=== PATIENT | male | born 1950 | race Caucasian/White ===

== ENCOUNTER 2016-09-05 12:22 | Emergency (ER) | payer MEDICARE ==
[~2016-09-05] VITALS: Ht 175.3 cm; Wt 79.8 kg
--- NOTE | 2016-09-05 12:42 | Emergency Room Report ---
History of Present Illness Time Seen by [id number] Presenting Problem in Triage Pt arrived:Walked Presenting Problem:ABD PAIN, UNABLE TO URINATE SINCE 4AM, SENT HERE FROM DR. 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 N Clinical Suspician of Infection? N Mental Status: 1 - Regular (Normal Baseline) Sepsis Risk:Possible Sepsis Risk Have you (or family members/close friends) recently traveled outside the [place]? N If Yes, where/when: Have you had exposure to infectious disease within the past month? TB? Other? Specify: Patient reports no UOP for the past eight hours, having diffuse back pain without neurological sx; reports hx renal calculi but no recent urinary sx, no hematuria, no unilateral pain. No fever or vomiting. Referred to ED by his PCP, Dr. Quintanilla. ALLERGIES Coded Allergies: Sulfa (Sulfonamide Antibiotics) (09/05/16) cefaclor (From CECLOR) (09/05/16) Home Medications Reported Medications No Known Home Medications History Medical History General Angina: No NE: No Hypertension? Yes Hyperlipidemia? No CHF? No COPD? Yes Asthma? Yes CVA? No Seizures? No Diabetes? No GB Disease: No MRSA? No TB? No Cancer? No Immunization Hx DT/Tetanus Unknown Surgical Hx Previous Surgery?Y MOLES FORM NECK NOSE WART RIGHT INDEX FINGER Social History Smoking Hx Smoker: Never Smoker Tobacco: No Alcohol Alcohol: No Review of Systems All Other Systems Reviewed and Negative Genitourinary see HPI. Physical Exam Vital Signs Vital Signs Date Time Temp Pulse Resp B/P Pulse O2 O2 Flow FiO2 Ox Delivery Rate 09/05 1311 85 14 141/75 94 09/05 1226 98.7 110 20 165/83 95 General Appearance normal appearance, WD/WN, mild distress Eye Exam - bilateral eye normal exam, bilateral eye PERRL Neck normal inspection, non-tender, supple Respiratory Status Yes: trachea midline, chest symmetrical, non tender chest. No: respiratory distress, tender on palpation, use of accessory muscles, pain on inspiration, pain on expiration, productive cough, non productive cough. Lung Sounds bilateral: normal breath sounds, lungs clear. Cardiovascular normal exam, regular rate/rhythm, no peripheral edema, no gallop, no JVD, no murmur, no rub, JVD Gastrointestinal normal bowel sounds, normal exam, soft, no organomegaly, no pulsatile mass, no guarding, no rebound, tenderness, mild tenderness and distension, suprapubic region. Neg CVAT. Back no CVA tenderness Extremities normal range of motion Strength 5 Upper Ext (L), 5 Upper Ext (R), 5 Lower Ext (L), 5 Lower Ext (R) Neurologic alert, normal exam, oriented x 3 Glascow Coma Scale Glascow Coma Scale Response Value EYE response: 4 Spontaneously 4 MOTOR response: 6 OBEYS 6 VERBAL response: 5 Oriented & Converses 5 Total 15 Skin intact, normal color, warm/dry Medical Decision Making LABS/Meds/Orders Pt receiving controlled substance in ED? No Results/Orders Laboratory Tests 09/05/16 1300: Sodium 137, Potassium 3.5, Chloride 102, Carbon Dioxide 25, BUN 14, Creatinine 0.9, Estimated Creat Clear 89, Estimated GFR (MDRD) 84, Glucose 232 H, Calcium 8.9, WBC 13.1 H, RBC 4.91, Hgb 13.7 L, Hct 41.9 L, MCV 85.4, RDW 14.3, Plt Count 193, Gran % 91.3 H, Gran # 12.0 H, Total Counted Pending, Lymphocytes % 5.8 L, Monocytes % 2.9, Neutrophils Pending, Lymphocytes (Manual) Pending, Lymphocytes # 0.8, Monocytes # 0.4, Platelet Estimate Pending, PUBS MCHC 32.7, MCH 27.9 09/05/16 1245: Urine Color YELLOW, Urine Appearance CLEAR, Urine pH 6.0, Ur Specific [place] 1.010, Urine Protein NEGATIVE, Urine Ketones NEGATIVE, Urine Blood 1+ H, Urine Nitrate NEGATIVE, Urine Bilirubin NEGATIVE, Urine Urobilinogen 0.2, Ur Leukocyte Esterase NEGATIVE, Urine RBC 10-20, Urine WBC OCC, Ur Squamous Epith Cells OCC, Urine Bacteria OCC, Urine Glucose 3+ H Orders Procedure Date/time Status DIFFERENTIAL-WBC 09/05 1300 Active URINARY CATHETER INSERT 09/05 123 Active URINALYSIS/COMPLETE 09/05 1234 Complete CBC WITH AUTO DIFF 09/05 123 Active BASIC METABOLIC PROFILE 09/05 123 Complete Progress ED Progress Notes Date 09/05/16 Time 1331 Comment 900 ml into Barrera bag; complete relief of discomfort, d/c home stable. Departure Departure Time of Disposition 1332 Disposition DC Home or Self Care(routine) Clinical Impression Primary Impression: Acute urinary retention Condition STABLE Referrals Frank Quintanilla MD Patient Instructions How to Care for Your Barrera Catheter -- Female Additional Instructions See Dr. Quintanilla in one day for recheck Barrera and potential referral to urology. Discharge Counseling Counseled pt/family regarding diagnosis, test results, home care, follow up needs Prescriptions Current Visit Scripts No Known Home Medications ED Critical Care Critical Care No at 1332
[2016-09-05 13:05] LABS: URINE BILIRUBIN - DIPSTICK NEGATIVE (NEG); URINE BLOOD 1+ (NEG)
--- OUTSIDE RECORDS SUMMARY | 2016-09-05 13:10 | External Medical Summary Rpt ---
Author Author [employer] Organization [employer] Address Unknown Phone Unavailable Purpose Continuity of Care Document - through 2016
--- OUTSIDE RECORDS SUMMARY | 2016-09-05 13:10 | External Medical Summary Rpt ---
Author Author BRAVO Address Unknown Phone [email or web address] Purpose Continuity of Care Document - through 2016
--- OUTSIDE RECORDS SUMMARY | 2016-09-05 13:10 | External Medical Summary Rpt ---
Demographics Preferred Language Azeri Marital Status Unknown Mandaen Affiliation Unknown Race Unknown Ethnic Group Unknown Author Author , BRAVO [place] Address Unknown Phone Immunization Unable to retrieve immunization data due to connection failure with Immunization Registry. Please try again later.
--- OUTSIDE RECORDS SUMMARY | 2016-09-05 13:10 | External Medical Summary Rpt ---
Author Author BRAVO Address Unknown Phone [email or web address] Purpose Continuity of Care Document - through 2016
--- OUTSIDE RECORDS SUMMARY | 2016-09-05 13:10 | External Medical Summary Rpt ---
Demographics Preferred Language Romanian Marital Status Unknown Tenriism Affiliation Unknown Race Unknown Ethnic Group Unknown Author Author , BRAVO [place] Address Unknown Phone Immunization Unable to retrieve immunization data due to connection failure with Immunization Registry. Please try again later.
[2016-09-05 13:15] LABS: HEMOGLOBIN 13.7 g/dL (14.1-18.0)
[2016-09-05 13:16] LABS: LYMPH # 0.8 K/mm3 (0.7-4.5); LYMPH % 5.8 % (10-50)
[2016-09-05 13:20] LABS: URINE SQUAMOUS CELLS OCC #/hpf (OCC)
[2016-09-05 13:37] LABS: NEUTROPHILS 89 % (42-76)
[2016-09-05 14:02] VITALS: BP 140/77
[2016-09-06] MEDS ORDERED: FLOMAX0.4 MG PO (23:56)
[2016-09-06] MEDS ORDERED: CIPRO 500MG TA500 MG PO (23:56)
[2016-09-14] MEDS ORDERED: GLUCOPHAGE500 MG PO (11:38)
[2016-09-15] MEDS ORDERED: OXYBUTYNIN5 MG PO (14:40)
== END 2016-09-05 14:04 | disposition home or self-care (01) ==
LOC: ER 12:22
PROVIDERS: Emergency Medicine
PROC: 0T9B70Z Drainage of Bladder with Drainage Device, Via Natural or Artificial Opening (ICD-10-PCS; principal; 2016-09-05)
DX: R33.9 Retention of urine, unspecified (principal); I10 Essential (primary) hypertension

== ENCOUNTER 2016-09-06 20:33 | Emergency (ER) | payer MEDICARE ==
[~2016-09-06] VITALS: Ht 175.3 cm; Wt 78.0 kg
[2016-09-06 22:46] LABS: URINE BILIRUBIN - DIPSTICK NEGATIVE (NEG); URINE BLOOD 3+ (NEG)
[2016-09-06] MEDS ORDERED: CIPRO 500MG TA500 MG PO (23:56)
[2016-09-06] MEDS ORDERED: FLOMAX0.4 MG PO (23:56)
--- NOTE | 2016-09-06 23:57 | Emergency Room Report ---
History of Present Illness Time Seen by [id number] Presenting Problem in Triage Pt arrived:Walked Presenting Problem:C/O UNABLE TO URINATE. WAS SEEN IN ER 09/05/16 FOR SAME PROBLEM AND HAD YEN CATH INSERTED. 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 N Clinical Suspician of Infection? N Mental Status: 1 - Regular (Normal Baseline) Sepsis Risk:Low Sepsis Risk Have you (or family members/close friends) recently traveled outside the [place]? N If Yes, where/when: Have you had exposure to infectious disease within the past month? N TB? Other? Specify: Comment The patient was seen in this emergency department yesterday for acute urinary retention. A Yen catheter placed. It was removed by his primary care physician today at 3 PM. He is not been able to urinate since except for a tiny amount. He complains of a distended bladder with back pain. No fever. Catheter has been placed in the emergency department and he feels much better. He has an appointment to see urologist Dr. Webb on Monday. ALLERGIES Coded Allergies: Sulfa (Sulfonamide Antibiotics) (09/05/16) cefaclor (From CECLOR) (09/05/16) History Medical History General CAD? No Angina: No VT: No Hypertension? Yes Hyperlipidemia? No CHF? No DVT? No PE? No COPD? Yes Asthma? Yes Anemia? No GERD? No Gastric ulcers? No GI Bleed? No Hernia? Yes Thyroid Problems? No Hypothyroidism? No CVA? No Seizures? No Diabetes? No Renal Insuffiency? No End Stage Renal Disease? No UTI? No Stones? Yes BPH? Yes GB Disease: No Nephritic Syndrome? No Asplenia? No Hepatitis? No Sickle Cell Disease? No Arthritis? No Migraines? No Cataracts? No Glaucoma? No MRSA? No HIV? No TB? No Anxiety? No Depression? No Cancer? No Immunization Hx DT/Tetanus Unknown Surgical Hx Previous Surgery?Y MOLES FORM NECK NOSE WART RIGHT INDEX FINGER Social History Smoking Hx Smoker: Never Smoker Tobacco: No Alcohol Alcohol: No Review of Systems All Other Systems Reviewed and Negative Constitutional denies fever Genitourinary see HPI. Musculoskeletal back pain Physical Exam Vital Signs Vital Signs Date Time Temp Pulse Resp B/P Pulse O2 O2 Flow FiO2 Ox Delivery Rate 09/077 98.4 85 20 142/78 99 09/07 0022 85 17 142/78 99 09/06 2238 105 20 139/73 96 09/06 2131 98.4 89 18 164/85 95 09/06 203 98.3 82 18 131/91 96 General Appearance normal appearance Respiratory Status No: respiratory distress. Cardiovascular regular rate/rhythm Gastrointestinal normal exam, non tender Male Genitalia normal genitalia, no hernia, uncircumcised Neurologic alert, oriented x 3 Medical Decision Making LABS/Meds/Orders Pt receiving controlled substance in ED? No Results/Orders Laboratory Tests 09/06/162234: Urine Color YELLOW, Urine Appearance CLEAR, Urine pH 7.5, Ur Specific [place] 1.010, Urine Protein NEGATIVE, Urine Ketones TRACE H, Urine Blood 3+ H, Urine Nitrate NEGATIVE, Urine Bilirubin NEGATIVE, Urine Urobilinogen 2.0, Ur Leukocyte Esterase NEGATIVE, Urine RBC NONE, Urine WBC 5-10, Ur Squamous Epith Cells NONE, Urine Bacteria TRACE, Urine Glucose 2+ H Current Medication Orders Sig/Soham Start time Last Medication Dose Route Stop Time Status Admin Levofloxacin 0 .STK-MED ONE 09/07 0012 DC .ROUTE Levofloxacin 500 MG ONCE ONE 09/065 DC 09/07 PO 09/06 2345 0013 Orders Procedure Date/time Status GEN NSG/PT REQ (NOT FOR MEDS!) 09/06 2356 Active CULTURE, URINE 09/06 2354 Active URINARY CATHETER INSERT 09/07 2235 Active URINALYSIS/COMPLETE 09/07 2235 Complete Departure Departure Disposition DC Home or Self Care(routine) Clinical Impression Primary Impression: Acute urinary retention Condition STABLE Referrals Dawood Gates MD (Family) Patient Instructions DI for Urinary Retention in Men, How to Care for Your Yen Catheter -- Male Additional Instructions Keep catheter in until you see Dr. Webb on Monday. Prescriptions Current Visit Scripts TAMSULOSIN HCL (Flomax) 0.4 MG PO QHS #10 CAP Ciprofloxacin HCl (Cipro 500MG TAB) 500 MG PO BID #20 TAB ED Critical Care Critical Care No at 0148
[2016-09-07 00:37] VITALS: BP 142/78
--- OUTSIDE RECORDS SUMMARY | 2016-09-09 18:39 | External Medical Summary Rpt ---
Author Author , BRAVO Campbell BRAVO Address Unknown Phone [email or web address] Purpose Continuity of Care Document - 09-05-2016 through 2016 Problems Code Diagnosis DOS Provider Status R33.8 OTHER RETENTION OF URINE Results Labs Lab Lab Date Result Refere Interp Status Commen Order Detail nces retati t Range on Urinalysis dipstick W Reflex Microscopic panel in Urine (09-06-2016 22:35) Bacteri TRACE O complet a 017 ed [Presen 22:35 ce] in Urine sedimen t by Light microsc opy Erythro NONE 0 complet cytes 017 ed [Presen 22:35 ce] in Urine sedimen t by Light microsc opy Epithel NONE OCC complet ial 017 ed cells.s 22:35 quamous [Presen ce] in Urine sedimen t by Microsc opy high power field Leukocy 5-10 O complet ronaldo 017 wbc/hpf ed [#/volu 22:35 me] in Urine Urinalysis dipstick W Reflex Microscopic panel in Urine (09-06-2016 22:35) Appeara CLEAR CLEAR complet nce of 017 ed Urine 22:35 Bilirub NEGATIV NEG complet in 017 E ed [Presen 22:35 ce] in Urine by Test strip Erythro 3+ NEG Abnorma complet cytes 017 l ed [Presen 22:35 ce] in Urine Color YELLOW YELLOW complet of 017 ed Urine 22:35 Ketones TRACE NEG Abnorma complet 017 l ed [Presen 22:35 ce] in Urine by Automat ed test strip Mucus NEGATIV NEG complet [Presen 017 E ed ce] in 22:35 Urine sedimen t by Light microsc opy Nitrite NEGATIV NEG complet 017 E ed [Presen 22:35 ce] in Urine by Test strip Urobili 2.0 NEG complet nogen 017 ed [Presen 22:35 ce] in Urine by Test strip Differential panel, method unspecified - (09-05-2016 13:00) LYMPH 9 % 10% - Low complet 017 50% ed 13:00 Platele NORMAL complet ts 017 ed [Presen 13:00 ce] in Blood by Light microsc opy Urinalysis dipstick W Reflex Microscopic panel in Urine (09-05-2016 12:45) Bacteri OCC O complet a 017 ed [Presen 12:45 ce] in Urine sedimen t by Light microsc opy Erythro 10-20 0 complet cytes 017 ed [Presen 12:45 ce] in Urine sedimen t by Light microsc opy Epithel OCC OCC complet ial 017 ed cells.s 12:45 quamous [Presen ce] in Urine sedimen t by Microsc opy high power field Urinalysis dipstick W Reflex Microscopic panel in Urine (09-05-2016 12:45) Appeara CLEAR CLEAR complet nce of 017 ed Urine 12:45 Bilirub NEGATIV NEG complet in 017 E ed [Presen 12:45 ce] in Urine by Test strip Erythro 1+ NEG Abnorma complet cytes 017 l ed [Presen 12:45 ce] in Urine Color YELLOW YELLOW complet of 017 ed Urine 12:45 Ketones NEGATIV NEG complet 017 E ed [Presen 12:45 ce] in Urine by Automat ed test strip Mucus NEGATIV NEG complet [Presen 017 E ed ce] in 12:45 Urine sedimen t by Light microsc opy Nitrite NEGATIV NEG complet 017 E ed [Presen 12:45 ce] in Urine by Test strip Urobili 0.2 NEG complet nogen 017 ed [Presen 12:45 ce] in Urine by Test strip
--- OUTSIDE RECORDS SUMMARY | 2016-09-09 18:39 | External Medical Summary Rpt ---
Author Author [facility] [employer]ter, [email or web address] Address Unknown Phone Unavailable Results Urinalysis dipstick W Reflex Microscopic panel in Urine Observa Value Referen Units Interpr Notes Date tion ce etation Range Appeara CLEAR CLEAR No No No Sep 06 nce of informa informa informa 2017 Urine tion in tion in tion in 10:35 source source source PM data data data Bacteri TRACE O No No No Sep 06 a informa informa informa 2016 [Presen tion in tion in tion in 10:35 ce] in source source source PM Urine data data data sedimen t by Light microsc opy Bilirub NEGATIV NEG No No No Sep 06 in E informa informa informa 2016 [Presen tion in tion in tion in 10:35 ce] in source source source PM Urine data data data by Test strip Erythro 3+ NEG No Abnorma No Sep 06 cytes informa l informa 2016 [Presen tion in tion in 10:35 ce] in source source PM Urine data data Color YELLOW YELLOW No No No Sep 06 of informa informa informa 2017 Urine tion in tion in tion in 10:35 source source source PM data data data Glucose NEG No High No Sep 06 [Mass/vol informati informati 2017 ume] in on in on in 10:35 PM Urine by source source Test data data strip Ketones TRACE NEG mg/dL Abnorma No Sep 06 l informa 2016 [Presen tion in 10:35 ce] in source PM Urine data by Automat ed test strip Mucus NEGATIV NEG No No No Sep 06 [Presen E informa informa informa 2016 ce] in tion in tion in tion in 10:35 Urine source source source PM sedimen data data data t by Light microsc opy Nitrite NEGATIV NEG No No No Sep 06 E informa informa informa 2016 [Presen tion in tion in tion in 10:35 ce] in source source source PM Urine data data data by Test strip pH of 5.0 - 8.5 No Normal No Sep 06 Urine informati informati 2017 on in on in 10:35 PM source source data data Protein NEG mg/dL No No Sep 06 [Mass/vol informati informati 2017 ume] in on in on in 10:35 PM Urine by source source Automated data data test strip Erythro NONE 0 rbc/hpf No No Sep 06 cytes informa informa 2016 [Presen tion in tion in 10:35 ce] in source source PM Urine data data sedimen t by Light microsc opy Specific 1.005 - No Normal No Sep 06 gravity 1.030 informati informati 2017 of Urine on in on in 10:35 PM source source data data Epithel NONE OCC #/hpf No No Sep 06 ial informa informa 2017 cells.s tion in tion in 10:35 quamous source source PM data data [Presen ce] in Urine sedimen t by Microsc opy high power field Urobili 2.0 NEG E.U./dL No No Sep 06 nogen informa informa 2016 [Presen tion in tion in 10:35 ce] in source source PM Urine data data by Test strip Leukocy [5 O wbc/hpf No No Sep 06 ronaldo wbc/hpf informa informa 2016 [#/volu ; 10 tion in tion in 10:35 me] in wbc/hpf source source PM Urine ] data data Urinalysis dipstick W Reflex Microscopic panel in Urine Observa Value Referen Units Interpr Notes Date tion ce etation Range Appeara CLEAR CLEAR No No No Sep 06 nce of informa informa informa 2017 Urine tion in tion in tion in 10:35 source source source PM data data data Bilirub NEGATIV NEG No No No Sep 06 in E informa informa informa 2017 [Presen tion in tion in tion in 10:35 ce] in source source source PM Urine data data data by Test strip Erythro 3+ NEG No Abnorma No Sep 06 cytes informa l informa 2016 [Presen tion in tion in 10:35 ce] in source source PM Urine data data Color YELLOW YELLOW No No No Sep 06 of informa informa informa 2017 Urine tion in tion in tion in 10:35 source source source PM data data data Glucose NEG No High No Sep 06 [Mass/vol informati informati 2016 ume] in on in on in 10:35 PM Urine by source source Test data data strip Ketones TRACE NEG mg/dL Abnorma No Sep 06 l a 2016 [Presen tion in 10:35 ce] in source PM Urine data by Automat ed test strip Mucus NEGATIV NEG No No No Sep 06 [Presen E informa informa informa 2016 ce] in tion in tion in tion in 10:35 Urine source source source PM sedimen data data data t by Light microsc opy Nitrite NEGATIV NEG No No No Sep 06 E informa informa informa 2016 [Presen tion in tion in tion in 10:35 ce] in source source source PM Urine data data data by Test strip pH of 5.0 - 8.5 No Normal No Sep 06 Urine informati informati 2016 on in on in 10:35 PM source source data data Protein NEG mg/dL No No Sep 06 [Mass/vol informati informati 2016 ume] in on in on in 10:35 PM Urine by source source Automated data data test strip Specific 1.005 - No Normal No Sep 06 gravity 1.030 informati 2016 of Urine on in on in 10:35 PM source source data data Urobili 2.0 NEG E.U./dL No No Sep 06 nogen informa informa 2016 [Presen tion in tion in 10:35 ce] in source source PM Urine data data by Test strip CBC W Auto Differential panel in Blood Observa Value Referen Units Interpr Notes Date tion ce etation Range Granulocy 1.3 - 8.0 K/mm3 High No Sep 05 ronaldo informati 2016 1:00 [#/volume on in PM ] in source Blood by data Automated count Granulocy 37.0 - % High No Sep 05 ronaldo/100 80.0 informati 2016 1:00 leukocyte on in PM s in source Blood by data Automated count Hematocri 42.0 - % Low No Sep 05 t [Volume 52.0 ati 2016 1:00 on in PM Fraction] source of Blood data Hemoglobi 14.1 - g/dL Low No Sep 05 n 18.0 ati 2016 1:00 [Mass/vol on in PM ume] in source Blood data Lymphocyt 0.7 - 4.5 K/mm3 Normal No Sep 05 es informati 2016 1:00 [#/volume on in PM ] in source Unspecifi data ed specimen by Automated count Lymphocyt 10 - 50 % Low No Sep 05 es 2016 1:00 [#/volume on in PM ] in source Unspecifi data ed specimen by Automated count Erythrocy 27 - 31.2 pg Normal No Sep 05 te mean informati 2016 1:00 corpuscul on in PM ar source hemoglobi data n [Entitic mass] Erythrocy 31.8 - g/dl Normal No Sep 05 te mean 35.4 informati 2016 1:00 corpuscul on in PM ar source hemoglobi data n concentra tion [Mass/vol ume] by Automated count Erythrocy 82.2 - fL Normal No Sep 05 te mean 97.8 ati 2016 1:00 corpuscul on in PM ar volume source [Entitic data volume] by Automated count Monocytes 0.1 - 1.0 K/mm3 Normal No Sep 052016 1:00 [#/volume on in PM ] in source Blood by data Automated count Monocytes 1.7 - 9.3 % Normal No Sep 05 informati 2016 1:00 leukocyte on in PM s in source Blood by data Automated count Platelets 142 - 424 K/mm3 Normal No Sep 052016 1:00 [#/volume on in PM ] in source Blood data Erythrocy 4.6 - 6.2 M/mm3 Normal No Sep 05 ronaldo informati 2016 1:00 [#/volume on in PM ] in source Amniotic data fluid Erythrocy 11.5 - % Normal No Sep 05 te 17.5 informati 2016 1:00 distribut on in PM ion width source [Entitic data volume] by Automated count Leukocyte 4.8 - K/mm3 High No Sep 05 s 10.8 informati 2016 1:00 [#/volume on in PM ] in source Blood data Differential panel, method unspecified - Observa Value Referen Units Interpr Notes Date tion ce etation Range LYMPH 9 10 - 50 % Low No Sep 052016 tion in 1:00 PM source data Monocytes 2 - 9 % Normal No Sep 05 informati 2016 1:00 leukocyte on in PM s in source Blood by data Automated count Platele NORMAL No No No No Sep 05 ts informa informa informa informa 2017 [Presen tion in tion in tion in tion in 1:00 PM ce] in source source source source Blood data data data data by Light microsc opy Neutrophi 42 - 76 % High No Sep 05 ls informati 2016 1:00 [#/volume on in PM ] in source Blood by data Automated count Cells No #CELLS No No Sep 05 Counted informati informati informati 2016 1:00 Total [#] on in on in on in PM in Blood source source source data data data Basic metabolic panel in Blood Observa Value Referen Units Interpr Notes Date tion ce etation Range Urea 7 - 18 mg/dL Normal No Sep 05 nitrogen informati 2016 1:00 [Mass/vol on in PM ume] in source Serum or data Plasma Calcium 8.5 - mg/dL Normal No Sep 05 [Mass/vol 10.1 informati 2016 1:00 ume] in on in PM Serum or source Plasma data Chloride 98 - 107 mmoL/L Normal No Sep 05 [Moles/vo informati 2016 1:00 lume] in on in PM Serum or source Plasma data Carbon 21.0 - mmoL/L Normal No Sep 05 dioxide, 32.0 informati 2016 1:00 total on in PM [Moles/vo source lume] in data Serum or Plasma Creatinin 0.70 - mg/dL Normal No Sep 05 e 1.30 informati 2017 1:00 [Mass/vol on in PM ume] in source Serum or data Plasma Creatinin 50 - 200 ML/MIN Normal No Sep 05 e renal informati 2016 1:00 clearance on in PM source predicted data by Cockcroft -Gault formula Estimated >60 ML/MIN No REFERENCE Sep 05 informati RANGE: 2017 1:00 glomerula on in >60 PM r source ML/MIN/1. filtratio data 73 SQUARE n rate METERSIf (GF this patient is -A merican, then multiply theresult by 1.210. Glucose 74 - 106 mg/dL High No Sep 05 [Mass/vol informati 2016 1:00 ume] in on in PM Serum or source Plasma data Potassium 3.5 - 5.1 mmoL/L Normal No Sep 05 informati 2016 1:00 [Moles/vo on in PM lume] in source Serum or data Plasma Sodium 136 - 145 mmoL/L Normal No Sep 05 [Moles/vo informati 2017 1:00 lume] in on in PM Serum or source Plasma data Urinalysis dipstick W Reflex Microscopic panel in Urine Observa Value Referen Units Interpr Notes Date tion ce etation Range Appeara CLEAR CLEAR No No No Sep 05 nce of informa informa informa 2017 Urine tion in tion in tion in 12:45 source source source PM data data data Bacteri OCC O No No No Sep 05 a informa informa informa 2016 [Presen tion in tion in tion in 12:45 ce] in source source source PM Urine data data data sedimen t by Light microsc opy Bilirub NEGATIV NEG No No No Sep 05 in E informa informa informa 2016 [Presen tion in tion in tion in 12:45 ce] in source source source PM Urine data data data by Test strip Erythro 1+ NEG No Abnorma No Sep 05 cytes informa l informa 2016 [Presen tion in tion in 12:45 ce] in source source PM Urine data data Color YELLOW YELLOW No No No Sep 05 of informa informa informa 2016 Urine tion in tion in tion in 12:45 source source source PM data data data Glucose NEG No High No Sep 05 [Mass/vol informati informati 2016 ume] in on in on in 12:45 PM Urine by source source Test data data strip Ketones NEGATIV NEG mg/dL No No Sep 05 E informa informa 2016 [Presen tion in tion in 12:45 ce] in source source PM Urine data data by Automat ed test strip Mucus NEGATIV NEG No No No Sep 05 [Presen E informa informa informa 2016 ce] in tion in tion in tion in 12:45 Urine source source source PM sedimen data data data t by Light microsc opy Nitrite NEGATIV NEG No No No Sep 05 E informa informa informa 2016 [Presen tion in tion in tion in 12:45 ce] in source source source PM Urine data data data by Test strip pH of 5.0 - 8.5 No Normal No Sep 05 Urine informati informati 2017 on in on in 12:45 PM source source data data Protein NEG mg/dL No No Sep 05 [Mass/vol informati informati 2017 ume] in on in on in 12:45 PM Urine by source source Automated data data test strip Erythro 10-20 0 rbc/hpf No No Sep 05 cytes informa informa 2017 [Presen tion in tion in 12:45 ce] in source source PM Urine data data sedimen t by Light microsc opy Specific 1.005 - No Normal No Sep 05 gravity 1.030 informati informati 2017 of Urine on in on in 12:45 PM source source data data Epithel OCC OCC #/hpf No No Sep 05 ial informa informa 2017 cells.s tion in tion in 12:45 quamous source source PM data data [Presen ce] in Urine sedimen t by Microsc opy high power field Urobili 0.2 NEG E.U./dL No No Sep 05 nogen informa informa 2017 [Presen tion in tion in 12:45 ce] in source source PM Urine data data by Test strip Leukocyte O wbc/hpf No No Sep 05 s informati informati 2017 [#/volume on in on in 12:45 PM ] in source source Urine data data Urinalysis dipstick W Reflex Microscopic panel in Urine Observa Value Referen Units Interpr Notes Date tion ce etation Range Appeara CLEAR CLEAR No No No Sep 05 nce of informa informa informa 2017 Urine tion in tion in tion in 12:45 source source source PM data data data Bilirub NEGATIV NEG No No No Sep 05 in E informa informa informa 2016 [Presen tion in tion in tion in 12:45 ce] in source source source PM Urine data data data by Test strip Erythro 1+ NEG No Abnorma No Sep 05 cytes informa l informa 2016 [Presen tion in tion in 12:45 ce] in source source PM Urine data data Color YELLOW YELLOW No No No Sep 05 of informa informa informa 2017 Urine tion in tion in tion in 12:45 source source source PM data data data Glucose NEG No High No Sep 05 [Mass/vol informati informati 2017 ume] in on in on in 12:45 PM Urine by source source Test data data strip Ketones NEGATIV NEG mg/dL No No Sep 05 E informa informa 2016 [Presen tion in tion in 12:45 ce] in source source PM Urine data data by Automat ed test strip Mucus NEGATIV NEG No No No Sep 05 [Presen E informa informa informa 2016 ce] in tion in tion in tion in 12:45 Urine source source source PM sedimen data data data t by Light microsc opy Nitrite NEGATIV NEG No No No Sep 05 E informa informa informa 2016 [Presen tion in tion in tion in 12:45 ce] in source source source PM Urine data data data by Test strip pH of 5.0 - 8.5 No Normal No Sep 05 Urine informati informati 2017 on in on in 12:45 PM source source data data Protein NEG mg/dL No No Sep 05 [Mass/vol informati informati 2016 ume] in on in on in 12:45 PM Urine by source source Automated data data test strip Specific 1.005 - No Normal No Sep 05 gravity 1.030 informati informati 2016 of Urine on in on in 12:45 PM source source data data Urobili 0.2 NEG E.U./dL No No Sep 05 nogen informa informa 2016 [Presen tion in tion in 12:45 ce] in source source PM Urine data data by Test strip
--- OUTSIDE RECORDS SUMMARY | 2016-09-09 18:39 | External Medical Summary Rpt ---
Demographics Preferred Language Slovenian Marital Status Unknown Cheondoism Affiliation Unknown Race Unknown Ethnic Group Unknown Author Author , [facility] Address Unknown Phone Immunization Unable to retrieve immunization data due to connection failure with Immunization Registry. Please try again later.
--- OUTSIDE RECORDS SUMMARY | 2016-09-09 18:39 | External Medical Summary Rpt ---
Demographics Preferred Language Khmer Marital Status Unknown [facility] Affiliation Unknown Race Unknown Ethnic Group Unknown Author Author , [facility] Address Unknown Phone Immunization Unable to retrieve immunization data due to connection failure with Immunization Registry. Please try again later.
--- OUTSIDE RECORDS SUMMARY | 2016-09-09 18:39 | External Medical Summary Rpt ---
Author Author , [facility] Address Unknown Phone [email or web address] Purpose Continuity of Care Document - 09-05-2016 [...]
--- OUTSIDE RECORDS SUMMARY | 2016-09-09 18:39 | External Medical Summary Rpt ---
Author Author [facility] Richter, [employer] Organization [employer] Address Unknown Phone Unavailable [...]
[2016-09-14] MEDS ORDERED: GLUCOPHAGE500 MG PO (11:38)
[2016-09-15] MEDS ORDERED: OXYBUTYNIN5 MG PO (14:40)
== END 2016-09-07 00:38 | disposition home or self-care (01) ==
LOC: ER 20:33
PROVIDERS: Emergency Medicine
PROC: 0T9B70Z Drainage of Bladder with Drainage Device, Via Natural or Artificial Opening (ICD-10-PCS; principal; 2016-09-06)
DX: R33.9 Retention of urine, unspecified (principal)